=== PATIENT | female | born 1980 | race Caucasian/White ===

== ENCOUNTER 2016-07-24 01:14 | Emergency (ER) | payer OTHER ==
[~2016-07-24] VITALS: Ht 170.2 cm; Wt 145.2 kg
[~2016-07-24 01:14] MED LIST: AMITRIPTYLINE H25 M2 PO; BACTRIM DS TAB1 EACH PO; CIPROFLOXACIN500 M1 PO; CLEOCIN HCL150 MG PO; CYCLOBENZAPRINE10 MG; DIABETA 5MG TABL5 MG; FISH OIL 1,001000 M1 PO; GLUCOPHAGE1000 MG PO; LANTUS SUBQ; LISINOPRIL10 MG PO; LOMOTIL TABLET1 EACH PO; LOVASTATIN 20 M20 MG PO; NAPROSYN500 MG PO; NORCO 5-325 TA1 EACH PO; NOVOLIN 70100 UNIT/1 SUBQ; NOVOLOG100 UNIT/1 SQ; ONDANSETRON HCL4 M2 PO; PRAVASTATIN SOD20 MG PO; TESSALON PERLE100 MG PO; TOBREX5 ML OPHTHALMIC; ZANTAC 150MG T150 MG PO; ZOFRAN ODT4 MG PO; ZPAK PO
[2016-07-24] MEDS ORDERED: NORCO 5-325 TA1 EACH PO (02:48)
[2016-07-24 03:34] VITALS: BP 118/62
== END 2016-07-24 03:41 | disposition home or self-care (01) ==
LOC: ER 01:14
DX: S82.492A Other fracture of shaft of left fibula, initial encounter for closed fracture (principal); S83.92XA Sprain of unspecified site of left knee, initial encounter; M25.572 Pain in left ankle and joints of left foot; M25.562 Pain in left knee; E11.9 Type 2 diabetes mellitus without complications; E78.00 Pure hypercholesterolemia, unspecified; I10 Essential (primary) hypertension; Z86.14 Personal history of Methicillin resistant Staphylococcus aureus infection; Z88.5 Allergy status to narcotic agent; Z79.4 Long term (current) use of insulin; W01.0XXA Fall on same level from slipping, tripping and stumbling without subsequent striking against object, initial encounter; Y93.9 Activity, unspecified; Y92.009 Unspecified place in unspecified non-institutional (private) residence as the place of occurrence of the external cause; Y99.9 Unspecified external cause status

== ENCOUNTER 2017-02-02 11:51 | Emergency (ER) | payer OTHER ==
[~2017-02-02] VITALS: Ht 172.7 cm; Wt 141.5 kg
--- NOTE | ~2017-02-02 | EKG ---
[address] [employer] [place] [address] ELECTROCARDIOGRAM REPORT Name: MALLIKAWENDY MARY [facility] [id number] Admission: 02/02/17 Attend Phys: Discharge: 02/02/17 Date of : 82 Report #: [id number] THIS REPORT FOR: //name// [facility] ED Test Date: 2017-02-02 Test Time: 11:55:34 Pat Name: WENDY TENA Department: Room: Gender: F [employer]: MIMI : 1980 Requested By: Davion Bruce Order Number: [id number] MD: Darshan Alberts Measurements Intervals [place] Rate: 105 P: 50 MS: 132 QRS: -7 QRSD: 88 T: 12 QT: 330 QTc: 437 Interpretive Statements Sinus tachycardia Poor R-wave progression Compared to ECG 02/24/2013 06:22:23 Sinus rhythm no longer present Electronically Signed On 02-04-2017 7:08:44 CDT by Darshan Alberts [email or web address] <ELECTRONICALLY SIGNED> By: Darshan Alberts MD, [facility] 02/04/17 0708 D: 07/5 1155 Darshan Alberts MD, FACC /EPI
[2017-02-02] MEDS ORDERED: LEVEMIR FL100 UNIT/2 SQ (12:10)
[2017-02-02] MEDS ORDERED: CALCIUM CARBON600 MG PO (12:20)
[2017-02-02] MEDS ORDERED: VITAMIN D400 UNIT PO (12:20)
[2017-02-02 12:24] LABS: ABSOLUTE NEUTROPHILS 8.7 thou/uL (1.4-8.2); BASOPHILS 0.8 % (0.0-2.0); EOSINOPHILS 0.4 % (0.0-3.0); HEMATOCRIT 46.7 % (37.0-47.0); HEMOGLOBIN 15.9 gm/dL (12.0-15.0); LYMPHOCYTES 19.7 % (24.0-44.0); MCH 28.4 pg (26.0-34.0); MCV 83.4 fL (80.0-100.0); MONOCYTES 5.7 % (1.0-8.0); PLATELET COUNT 224 thou/uL (150-400); POLYS 73.4 % (36.0-66.0); RBC 5.61 mil/uL (4.20-5.00); WBC 11.8 thou/uL (4.0-11.0)
[2017-02-02 12:26] LABS: MANUAL DIFF NO
[2017-02-02 12:29] LABS: ANION GAP 10 mmol/L (7-16); BUN 15 mg/dL (7-18); CALCIUM 10.2 mg/dL (8.5-10.1); CHLORIDE 94 mmol/L (98-107); CO2 28 mmol/L (21-32); GLUCOSE 409 mg/dL (74-106); POTASSIUM 3.4 mmol/L (3.5-5.1); SODIUM 132 mmol/L (136-145)
[2017-02-02 12:41] LABS: ALBUMIN 3.4 g/dL (3.4-5.0); ALKALINE PHOSPHATASE 106 U/L (46-116); NT-PRO BRAIN NAT PEPTIDE 10 pg/mL (<300); SGOT 23 U/L (15-37); SGPT 32 U/L (30-65); TOTAL BILIRUBIN 1.1 mg/dL (<0.1-1.0); TOTAL PROTEIN 7.8 g/dL (6.4-8.2); TROPONIN-I < 0.04 ng/mL (<0.04-0.07)
[2017-02-02 13:29] LABS: URINE BILIRUBIN 1+ (Negative); URINE BLOOD TRACE (Negative); URINE COLOR YELLOW; URINE GLUCOSE-RANDOM* 3+ (Negative); URINE KETONES TRACE (Negative); URINE LEUKOCYTES-REFLEX TRACE (Negative); URINE PROTEIN (DIPSTICK) 1+ (Negative); URINE SPECIFIC GRAVITY 1.015 (1.003-1.035); URINE UROBILINOGEN 0.2 E.U./dl (0.2-1.0)
[2017-02-02 13:33] LABS: ICTOTEST (BILI CONFIRMATORY) Negative (Negative)
[2017-02-02 13:44] LABS: CASTS None Seen /LPF (None Seen); SQUAMOUS 4-10 Moderate /LPF (0-3); URINE WBC-REFLEX 6-15 Few /HPF (0-5)
[2017-02-02 13:45] LABS: CRYSTALS None Seen /LPF (None Seen); URINE RBC 0-2 Rare /HPF (0-2)
[2017-02-02 16:03] VITALS: BP 104/64
== END 2017-02-02 16:04 | disposition home or self-care (01) ==
LOC: ER 11:51
PROVIDERS: Emergency Medicine
DX: R07.89 Other chest pain (principal); E86.0 Dehydration; E11.65 Type 2 diabetes mellitus with hyperglycemia; E66.01 Morbid (severe) obesity due to excess calories; E78.00 Pure hypercholesterolemia, unspecified; I10 Essential (primary) hypertension; Z88.5 Allergy status to narcotic agent; Z88.6 Allergy status to analgesic agent; Z79.4 Long term (current) use of insulin

== ENCOUNTER 2017-08-02 21:10 | Emergency (ER) | payer BC ==
[~2017-08-02] VITALS: Ht 172.7 cm; Wt 181.4 kg
[~2017-08-02 21:10] MED LIST changes: +CALCIUM CARBON600 MG PO; +LEVEMIR FL100 UNIT/2 SQ; +VITAMIN D400 UNIT PO
[2017-08-02] MEDS ORDERED: BYETTA PEN 51 PENIN1 (21:25)
[2017-08-02] MEDS ORDERED: HYDROCODONE-AP1 EAC6 PO (23:02)
[2017-08-02] MEDS ORDERED: NAPROSYN500 MG PO (23:02)
[2017-08-02 23:21] VITALS: BP 146/85
== END 2017-08-02 23:23 | disposition home or self-care (01) ==
LOC: ER 21:10
DX: S30.0XXA Contusion of lower back and pelvis, initial encounter (principal); M47.27 Other spondylosis with radiculopathy, lumbosacral region; E66.9 Obesity, unspecified; E11.9 Type 2 diabetes mellitus without complications; E78.00 Pure hypercholesterolemia, unspecified; I10 Essential (primary) hypertension; Z88.5 Allergy status to narcotic agent; Z88.8 Allergy status to other drugs, medicaments and biological substances; Z68.44 Body mass index [BMI] 60.0-69.9, adult; W01.0XXA Fall on same level from slipping, tripping and stumbling without subsequent striking against object, initial encounter; Y93.89 Activity, other specified; Y92.89 Other specified places as the place of occurrence of the external cause; Y99.8 Other external cause status

== ENCOUNTER 2018-09-14 18:49 | Emergency (ER) | payer BC, OTHER ==
[~2018-09-14] VITALS: Ht 175.3 cm; Wt 126.5 kg
[~2018-09-14 18:49] MED LIST changes: +BYETTA PEN 51 PENIN1; +HYDROCODONE-AP1 EAC6 PO
[2018-09-14] MEDS ORDERED: NORCO 5-325 TA1 EACH PO (20:01)
[2018-09-14] MEDS ORDERED: KEFLEX500 M1 PO (20:01)
[2018-09-14 20:51] VITALS: BP 114/73
== END 2018-09-14 20:52 | disposition home or self-care (01) ==
LOC: ER 18:49
DX: L03.031 Cellulitis of right toe (principal); E11.9 Type 2 diabetes mellitus without complications; E78.00 Pure hypercholesterolemia, unspecified; G89.29 Other chronic pain; M54.9 Dorsalgia, unspecified; E66.01 Morbid (severe) obesity due to excess calories; Z68.41 Body mass index [BMI] 40.0-44.9, adult; Z88.5 Allergy status to narcotic agent; Z88.6 Allergy status to analgesic agent; Z88.8 Allergy status to other drugs, medicaments and biological substances; Z86.14 Personal history of Methicillin resistant Staphylococcus aureus infection